=== PATIENT | male | born 1995 | race Caucasian/White ===

== ENCOUNTER 2018-03-12 18:28 | Emergency (ER) | payer OTHER ==
--- NOTE | 2018-03-12 18:36 | PDOC ---
Rapid Medical Evaluation Time Seen by Provider: 03/12/18 18:34 Medical Evaluation: Allergies Allergy/AdvReac Type Severity Reaction Status Date / Time No Known Allergies Allergy Verified 03/12/18 18:34 04 18:34 I have performed a brief in-person evaluation of this patient. The patient presents with a chief complaint of: cough x 4 weeks, has not taken abx, urgent care gave prednisone, MD Coelho "said not to give him anything else", denies fever, vomiting, diarrhea Pertinent physical exam findings: lungs clear, dry cough I have ordered the following: cxr The patient will proceed to the ED for further evaluation. Discharge Disposition - Referrals Referrals: New Coelho MD [Primary Care Provider] - - Patient Instructions - Post Discharge Activity
[2018-03-12 18:38] VITALS: BP 138/91; PULSE 102; TEMP 98.8; BMI 23.0
--- NOTE | 2018-03-12 19:37 | PDOC ---
History of Present Illness - General Chief Complaint: Cold Symptoms Stated Complaint: Cold Symptoms Time Seen by Provider: 03/12/18 18:34 History Source: Patient - History of Present Illness Associated Symptoms: reports: cough. denies: chest pain/soreness, earache, fever/chills, shortness of breath, sore throat, wheezing Past History - Past Medical History Allergies/Adverse Reactions: Allergies Allergy/AdvReac Type Severity Reaction Status Date / Time No Known Allergies Allergy Verified 03/12/18 18:34 Home Medications: Ambulatory Orders Azithromycin 250 mg PO ASDIR #6 tablet 03/12/18 Methylphenidate HCl [Concerta] 36 mg PO ASDIR 03/12/18 COPD: No Other medical history: autism - Suicide/Smoking/Psychosocial Hx Smoking History: Never smoked Information on smoking cessation initiated: No Hx Alcohol Use: No Drug/Substance Use Hx: No Substance Use Type: None Review of Systems - Review of Systems Constitutional: No: Chills, Fever HEENTM: No: Ear Pain, Throat Pain Respiratory: Yes: Cough. No: Shortness of Breath, Wheezing *Physical Exam - Vital Signs Last Vital Signs Temp Pulse Resp BP Pulse Ox 98.8 F 102 H 18 138/91 100 03/12/18 18:35 03/12/18 18:35 03/12/18 18:35 03/12/18 18:35 03/12/18 18:35 - Physical Exam General Appearance: Yes: Appropriately Dressed. No: Apparent Distress HEENT: positive: Normal Voice Neck: positive: Supple Respiratory/Chest: positive: Lungs Clear, Normal Breath Sounds. negative: Respiratory Distress Cardiovascular: positive: Regular Rate, S1, S2 Integumentary: positive: Dry, Warm Neurologic: positive: Fully Oriented, Alert, Normal Mood/Affect Medical Decision Making - Medical Decision Making 03/12/18 19:26 22 yo M, autism, asthma, no recent admission and no h/o intubations, uses pump and neb machine at home, no pmhx, p/w cough x 4 weeks weeks, mostly dry. No sob , wheezing, f/c. Started on prednisone burst in UC 2 weeks ago and then seen by PMD 4 days ago who diagnosed pt with viral URI per mother. States no CXR was done. States pt continues to cough. Pt stable w/ unremarkable exam. CXR negative today. Given duration of symptoms, will start on zpack. Pt to continue f/u with PMD *DC/Admit/Observation/Transfer Diagnosis at time of Disposition: Cough - Discharge Dispostion Disposition: HOME Condition at time of disposition: Good - Prescriptions Prescriptions: Azithromycin 250 mg PO ASDIR #6 tablet - Referrals Referrals: New Coelho MD [Primary Care Provider] - - Patient Instructions Printed Discharge Instructions: DI for Acute Bronchitis Additional Instructions: Given duration of cough (>3 weeks), we will start you on antibiotics Please continue to follow up with your PMD - Post Discharge Activity
== END 2018-03-12 19:43 | disposition home or self-care (01) ==
LOC: JERFT 18:28
DX: R05 Cough (principal)
CPT/HCPCS: 71046-TC-FY; 99281-25